=== PATIENT | male | born 1940 | race Caucasian/White ===

== ENCOUNTER 2016-12-10 06:36 | Inpatient (IN) | payer MEDICARE ==
--- NOTE | 2016-12-02 21:50 | HP ---
HISTORY AND PHYSICAL: DATE OF ADMISSION/SURGERY: 12/10/16 DATE OF OFFICE VISIT: 12/02/16 SURGEON: Stephy Lyon MD * (DICTATED BY JENNIFER ALVAREZ) PROCEDURE: Right total hip arthroplasty. CHIEF COMPLAINT: Right hip pain. HISTORY OF PRESENT ILLNESS: Mr. Bills is a 76-year-old gentleman with complaints of right hip pain secondary to advanced osteoarthritis. He has failed conservative management and has elected to proceed with a right total hip arthroplasty, which is scheduled for 12/10/16. PAST MEDICAL HISTORY: AFib, BPH, hypertension, hyperlipidemia, and kidney stones. PAST SURGICAL HISTORY: Left total knee arthroplasty, bilateral carpal tunnel release, right inguinal hernia repair, and placement of ureteral stents. CURRENT MEDICATIONS: 1. Metoprolol. 2. Xarelto. 3. Jublia. 4. Allopurinol. 5. Losartan. 6. Potassium. 7. Dutasteride. 8. Simvastatin. ALLERGIES: None. FAMILY HISTORY: COPD and leukemia. SOCIAL HISTORY: This is a 76-year-old gentleman. He lives alone. He occasionally smokes a cigar. He does not use drugs. He uses occasional alcohol. REVIEW OF SYSTEMS: A complete 14-point review of systems was reviewed with the patient, it was all negative or noncontributory. PHYSICAL EXAMINATION GENERAL: He is well developed, well nourished, in no acute distress. VITAL SIGNS: He stands 5 feet 7 inches tall, weighs 165 pounds. His blood pressure is 140/90, his heart rate is 64. HEENT: Normocephalic, atraumatic. NECK: Supple. No palpable lymph nodes. PULMONARY: The lungs are clear to auscultation bilaterally. CARDIO: Regular rate and rhythm. ABDOMEN: Soft, nontender, and nondistended. MUSCULOSKELETAL: Right lower extremity, the skin is intact. There are no open wounds or abrasions. He has decreased internal and external rotation of the right hip. He walks with an antalgic type gait favoring his right leg, 5/5 lower extremity strength. 2+ dorsalis pedis pulses and intact sensation. NEUROLOGICAL: Alert and oriented x3. Cranial nerves II through XII are intact. ASSESSMENT AND PLAN: Mr. Bills is a 76-year-old gentleman with complaints of right hip pain secondary to advanced osteoarthritis. He has failed conservative management and has elected to proceed with a right total hip arthroplasty, which is scheduled for 12/10/[address] Lyon discussed the risks and benefits of the surgery at today's visit and all of his questions were answered. He was instructed to stop his Xarelto 3 days prior to the surgery and will be restarted at the time of discharge from the hospital. He will follow up with Dr. Reddy 2 weeks after the surgery. JENNIFER ALVAREZ [id number]/[facility] #: [id number] LOGAN
[~2016-12-10 06:36] MED LIST: Buffered Lidocaine 0.9% SYRIN* 5 ML/SYR SYRINGE INTRADERM ONE; DiMENhydriNATE IV* 50 MG/ML VIAL IV PUSH PRN; Famotidine IV* 10 MG/ML 2 ML (20 mg) IV ONE; Morphine INJ* 2 MG/ML 1 ML CARPUJECT IV PRN; Ondansetron INJ* 2 MG/ML VIAL IV PRN; PROCHLORPERAZINE INJ 5 MG/ML 2 ML VIAL IV PRN; fentaNYL* 50 MCG/ML 2 ML VIAL (100 MCG VIAL) IV PRN
[2016-12-10] MEDS ORDERED: ceFAZolin 2 GM PREMIX (*) 2 GM/50 ML BAG IVPB ONE (06:47)
[2016-12-10] MEDS ORDERED: Buffered Lidocaine 0.9% SYRIN* 5 ML/SYR SYRINGE ONE (06:47)
[2016-12-10] MEDS ORDERED: Famotidine IV* 10 MG/ML 2 ML (20 mg) ONE (06:47)
[2016-12-10] MEDS ORDERED: fentaNYL* 50 MCG/ML 2 ML VIAL (100 MCG VIAL) ONE (07:37)
[2016-12-10] MEDS ORDERED: KETAMINE HCL* 50 MG/ML 10 ML VIAL ONE (07:37)
[2016-12-10] MEDS ORDERED: Morphine PF AMP (0.5MG/ML)* 5 MG/10 ML AMP ONE (07:37)
[2016-12-10] MEDS ORDERED: Midazolam* 1 MG/ML 5 ML VIAL (5 MG) ONE (07:37)
[2016-12-10] MEDS ORDERED: PROCHLORPERAZINE INJ 5 MG/ML 2 ML VIAL IV PRN (09:17)
[2016-12-10] MEDS ORDERED: Ondansetron INJ* 2 MG/ML VIAL IV PRN ×2 (09:17→10:03)
[2016-12-10] MEDS ORDERED: Naloxone* 0.4 MG/ML 1 ML VIAL IV PRN (09:17)
[2016-12-10] MEDS ORDERED: DiMENhydriNATE IV* 50 MG/ML VIAL IV PUSH PRN (09:17)
[2016-12-10] MEDS ORDERED: Nalbuphine* 20 MG/ML 1 ML VIAL IV PRN (09:17)
[2016-12-10] MEDS ORDERED: Morphine INJ* 2 MG/ML 1 ML SYRINGE (TWO MG - NEW SYRINGE VERSION) IV PRN (09:20)
[2016-12-10] MEDS ORDERED: Polyethylene Glycol 3350* 17 GM PACKET PO PRN (10:03)
[2016-12-10] MEDS ORDERED: diPHENhydraMINE IV* 50 MG/ML 1 ml VIAL (BENADRYL) IV PRN (10:03)
[2016-12-10] MEDS ORDERED: Bisacodyl SUPP* 10 MG SUPP PR PRN (10:03)
[2016-12-10] MEDS ORDERED: Morphine INJ* 2 MG/ML 1 ML CARPUJECT IV PRN (10:03)
[2016-12-10] MEDS ORDERED: Acetaminophen TAB* 325 MG PO PRN (10:03)
[2016-12-10] MEDS ORDERED: oxyCODONE TAB* 5 MG TAB PO PRN (10:03)
[2016-12-10] MEDS ORDERED: oxyCODONE/Acetamin 5/325 MG* TAB PO PRN (10:03)
[2016-12-10] MEDS ORDERED: Magnesium Hydroxide LIQ* 30 ML UDC PO PRN (10:03)
[2016-12-10] MEDS ORDERED: Phenylephrine INJ* 10 MG/ML 1 ML VIAL (10 MG) ONE (10:36)
[2016-12-10] MEDS ORDERED: Ondansetron INJ* 2 MG/ML VIAL ONE (10:36)
[2016-12-10] MEDS ORDERED: Bupivacaine 0.5% SDV PF* 30 ML VIAL ONE (10:36)
[2016-12-10] MEDS ORDERED: PROCHLORPERAZINE INJ 5 MG/ML 2 ML VIAL ONE (10:36)
[2016-12-10] MEDS ORDERED: Lidocaine 2% PF * 5 ML VIAL ONE (10:36)
[2016-12-10] MEDS ORDERED: Metoprolol Tartrate IV* 1 MG/ML 5 ML VIAL ONE (10:36)
[2016-12-10] MEDS ORDERED: Propofol* 500 MG/50 ML BTL ONE (10:36)
--- NOTE | 2016-12-10 11:13 | RAD ---
Indication: Right hip replacement. Single view of the right hip demonstrates right hip arthroplasty in satisfactory position. Right femoral reamer is in place. IMPRESSION: Right hip replacement in satisfactory position.
--- NOTE | 2016-12-10 11:26 | RAD ---
Indication: Right hip arthroplasty. 2 views of the right hip demonstrates femoral and acetabular component to be well seated. No loosening is noted. No evidence of periprosthetic fracture is noted. IMPRESSION: Right hip replacement in satisfactory position.
--- NOTE | 2016-12-10 11:26 | RAD ---
Indication: Right hip replacement. Single view of the right hip demonstrates bipolar right hip arthroplasty in satisfactory position. Pelvic ring is intact. IMPRESSION: Right hip replacement in satisfactory position.
[2016-12-10] MEDS: ceFAZolin 1 GM VIAL(*) 1 GM in NS 0.9% 50 ML* 50 ML IVPB SCH ×2 (16:11→23:52)
--- NOTE | 2016-12-10 17:36 | CONS ---
CC: Dr. Lyon; Dr. Rodriguez* CONSULTATION REPORT: DATE OF CONSULT: 12/10/16 ATTENDING PHYSICIAN WHILE IN THE HOSPITAL: Dr. Kaushik Bradshaw (report being dictated by Alan Rosenberg NP). REASON FOR MEDICAL CONSULT: Evaluation and medical management of comorbid medical conditions. HISTORY OF PRESENT ILLNESS: Mr. Bills is a 76-year-old male patient. He carries a history of AFib, BPH, hypertension, hyperlipidemia, nephrolithiasis, and he had syncope in the past related to orthostasis. He comes in to the orthopedic services today and I will refer you to Dr. Lyon's H and P for further details, but in the short Mr. Bills has been suffering from right hip pain for some time. He had been trying conservative management; however, this had failed and the patient elected to proceed with a right total hip arthroplasty, which he underwent today. He underwent cardiac risk stratification and he saw his primary for this. He had a normal stress test preoperatively, but because of his medical complexity, we are asked to help in medical management. The patient was evaluated in the PACU. He denies having any chest pain. He says he just feels tired. He denies having any shortness of breath. He says he cannot feel his lower extremities; he did undergo spinal anesthetic. He denies having any abdominal discomfort. He says he does not feel nauseated. He says his pain is well controlled. He just feels tired and he is offering really no complaints at this point. PAST MEDICAL HISTORY: Significant for: 1. Hypertension. 2. Hyperlipidemia. 3. BPH. 4. AFib. 5. Nephrolithiasis. 6. Syncope due to orthostasis in the past. PAST SURGICAL HISTORY: 1. The patient has had a left total knee arthroplasty, now he has had a right total hip arthroplasty. 2. Carpal tunnel repaired bilaterally. 3. Hernia repair. 4. He has had ureteral stent placements bilaterally in the past. MEDICATIONS: The home meds according to his list include: 1. Simvastatin 20 mg daily. 2. Xarelto 20 mg daily. 3. Toprol-XL 12.5 mg daily. 4. Lisinopril 10 mg daily. 5. Avodart 0.5 mg p.o. q.a.m. 6. Allopurinol 300 mg daily. 7. Tylenol Extra Strength 500 mg every 6 hours as needed. ALLERGIES TO MEDICATIONS: Include no known drug allergies. FAMILY HISTORY: His mother, he says, she at the age of 90 from old age. There were no reports of heart disease or diabetes per the patient in the patient's mother. Father of diabetes. SOCIAL HISTORY: He occasionally smokes cigars. He does drink a glass of wine at night, one glass of red wine. He is , with children. Surrogate decision maker is Stephania, his daughter. REVIEW OF SYSTEMS: There is no documented fever. He denied having any significant weight change. There has been no double vision, no ear discharge, no rhinorrhea. No sore throat. No thyroid enlargement. Denied having any chest pain. No orthopnea, no nocturnal dyspnea. There was no abdominal pain. No nausea, no vomiting. No dysuria, no frequency. There was no seizure, no loss of consciousness. No pruritus and no skin ulcerations. Review of 14 systems completed, all others negative. PHYSICAL EXAM: Reveals vital signs, blood pressure 123/79 with a pulse of 76, respirations 16, O2 sat 98%, temperature 97.3. General: At this time, Mr. Bills is a 76-year-old male patient. He is sitting in the PACU bed. He is awake, he is alert, he is well-nourished, well-developed. HEENT: Head atraumatic. Eyes: EOMs are intact. Sclerae anicteric, not pale. Throat: Oral mucosa appears to be moist. No oropharyngeal erythema. Neck: Supple. Heart: Sounds S1, S2. Irregularly irregular rate. No murmurs, rubs, or gallops. Lungs: Clear to auscultation. No wheezes, rales, or rhonchi. Abdomen: Soft, it was flat. Bowel sounds hypoactive. Extremities: He is not moving lower extremity at this point due to spinal anesthetic and he is in a hip adductor pillow, but he does have palpable pulses bilaterally. He has no peripheral edema. At this point, he is moving his upper extremities with 5/ 5 strength. Neurologically, he is awake, alert, and oriented x3. Speech is clear. His tongue is midline. [employer] were equal. He had no gross obvious focal deficits. His skin is intact with exception he has an incision in the right hip, which is covered with an ABD, it is clean, dry, and intact. DIAGNOSTIC STUDIES/LAB DATA: Preoperatively WBC is 7.9, RBC of 3.83, hemoglobin 12.7, hematocrit 38, platelet count 180. INR today 1.01. Sodium was 142, potassium 4.2, chloride 109, bicarb 28, BUN 17, creatinine 0.73, glucose 95. Urine preop was negative. He did have preop EKG, shows atrial fibrillation, rate of 71, no ST elevations or T- wave inversions. He had a preop stress test, again, which did show, impression: Normal cardiac exercise stress test. Old medical records reviewed. 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 Old medical records reviewed. ASSESSMENT AND PLAN: Mr. Bills is a 76-year-old male patient coming into the orthopedic services today for an elective right total knee arthroplasty. We are asked to evaluate in consult. My recommendations at this point are: 1. Status total right total hip arthroplasty. I will defer the management to Dr. Lyon and her team. 2. Atrial fibrillation. His rate is controlled. I will continue his Toprol. I will get him back on Xarelto as soon as possible once it is deemed appropriate by Dr. Lyon and her team. 3. Benign prostatic hyperplasia. I will continue his Avodart. 4. Hypertension. I am going to hold his lisinopril. We will continue his Toprol- XL and we will restart lisinopril when able. He did receive spinal anesthetic. 5. Hyperlipidemia. Continue his current medical regimen. He is on simvastatin. 6. Nephrolithiasis. Not an active issue. 7. History of syncope. Again, in the setting of him recently having an spinal anesthetic when we do go to stand him for PT, we will need to take note of this as he could become orthostatic and syncopize fairly easily. I am going to make sure he is well hydrated and in addition to this, slow with position changes. 8. DVT prophylaxis. Defer to the primary team, but again I will get him back on the Xarelto and that could be used for DVT prophylaxis. 9. Code status. He is a full code. 10. Fluids, electrolytes, nutrition. I would recommend a heart-healthy diet. TIME SPENT: On consult was 60 minutes, greater than half the time spent face-to - face with the patient obtaining my history and physical, the other half of the time spent going over the plan of care with the patient and implementing the plan of care. I did discuss the plan of care with my attending, Dr. Bradshaw; he is in agreement. ALAN ROSENBERG, BRITTANY [id number]/[facility] #: [id number] LOGAN
[2016-12-10] MEDS: Ketorolac INJ* 15 MG/ML 1 ML VIAL IV PUSH PRN (19:45)
[2016-12-10] MEDS: Docusate CAP* 100 MG PO SCH (19:46)
[2016-12-10] MEDS: oxyCODONE/Acetamin 5/325 MG* TAB PO PRN (22:57)
[2016-12-11 05:34] LABS: Hematocrit 31 % (42-52); Hemoglobin 10.5 g/dl (14.0-18.0)
[2016-12-11] MEDS: oxyCODONE/Acetamin 5/325 MG* TAB PO PRN ×2 (05:48→19:29)
[2016-12-11 05:49] LABS: BUN/Creatinine Ratio 21.1 (8-20); Calcium 8.3 mg/dL (8.6-10.3); EGFR Non-African American 107.3 (>60)
[2016-12-11] MEDS: Finasteride TAB* 5 MG PO SCH ×3 (08:50→11:11)
[2016-12-11] MEDS: ceFAZolin 1 GM VIAL(*) 1 GM in NS 0.9% 50 ML* 50 ML IVPB SCH (08:50)
[2016-12-11] MEDS: Docusate CAP* 100 MG PO SCH ×2 (08:50→19:30)
[2016-12-11] MEDS: Metoprolol Succinate XL TAB* 25 MG PO SCH (08:50)
[2016-12-11] MEDS: Enoxaparin(*) 40 MG/0.4 ML SYR SUBCUT SCH (08:50)
[2016-12-11] MEDS: Atorvastatin* 10 MG TAB PO SCH ×3 (08:50→11:11)
[2016-12-11] MEDS: Allopurinol TAB* 300 MG PO SCH (08:51)
[2016-12-11] MEDS ORDERED: Lisinopril TAB* 10 MG PO SCH (09:00)
--- NOTE | 2016-12-11 11:19 | PN ---
Progress Note - Progress Note Date of Service: 12/11/16 SOAP: Subjective: 76 y/o male s/p right total hip arthroplasty on 12/10/2016. The patient reports feeling very well, eager for D/C tomorrow. Hip precautions reviewed with patient, voices understanding. VSS afebrile overnight Objective: General- Well appearing, NAD AO MSK- Surgical dressing intact, no drainage noted, minimal swelling, non tender. + DF/PF, NVI, sensation intact to light touch b/l, PT 2+ b/l. Vital Signs Temp 98.4 F 12/11/16 07:45 Pulse 83 12/11/16 07:45 Resp 16 12/11/16 11:01 BP 118/74 12/11/16 07:45 Pulse Ox 95 12/11/16 07:45 Intake & Output 12/10/16 12/11/16 12/11/16 18:59 06:59 18:59 Intake Total 2500 1643 1323 Output Total 730 1500 Balance 7199 298 5712 Weight 148 lb 9.6 oz Intake: IV Fluids 1900 1013 1098 ABX - CEFAZOLIN 55 103 LR 1900 958 995 Oral 600 630 225 Output: Mathews 450 1500 Residual 30 Mathews 16 Fr 30 Estimated Blood Loss 250 Other: # Bowel Movements 0 Assessment: Stable 76 y/o male s/p right total hip arthroplasty on 12/10/2016. Plan: - anticoag- Patient will be D/Cd on Xarelto to start at D/C. Continue lovenox. - Continue PT - Possible D/C tomorrow to home Active Medications Generic Name Dose Route Start Last Admin Trade Name Freq PRN Reason Stop Dose Admin Acetaminophen 650 mg 12/10/16 10:03 Tylenol Tab* PO Q4H PRN PAIN OR TEMPERATURE Allopurinol 300 mg 12/11/16 09:00 12/11/16 08:51 Zyloprim Tab* PO 300 mg QAM DASH Administration Atorvastatin Calcium 10 mg 12/11/16 09:00 12/11/16 11:11 Lipitor* PO 10 mg QAM DASH Administration Bisacodyl 10 mg 12/10/16 10:03 Dulcolax Supp* [place] DAILY PRN constipation Diphenhydramine HCl 12.5 mg 12/10/16 10:03 Benadryl Iv* IV Q6H PRN PRURITIS Docusate Sodium 100 mg 12/10/16 21:00 12/11/16 08:50 Colace Cap* PO 100 mg BID DASH Administration Enoxaparin Sodium 40 mg 12/11/16 09:00 12/11/16 08:50 Lovenox(*) SUBCUT 40 mg Q24H DASH Administration Finasteride 5 mg 12/11/16 09:00 12/11/16 11:11 Proscar Tab* PO 5 mg QAM DASH Administration Protocol Lactated Ringer's 1,000 mls @ 100 mls/hr 12/10/16 11:00 12/10/16 23:48 Lactated Ringers 1000 Ml Bag* IV 100 mls/hr PER RATE DASH Administration Ketorolac Tromethamine 15 mg 12/10/16 09:17 12/10/16 19:45 Toradol Inj* IV PUSH 12/12/16 15:18 15 mg Q6H PRN Administration PAIN Lactulose 30 ml 12/10/16 10:03 Lactulose* PO Q6H PRN constipation Magnesium Hydroxide 30 ml 12/10/16 10:03 Milk Of Magnesia Liq* PO Q6H PRN constipation Metoprolol Succinate 12.5 mg 12/11/16 09:00 12/11/16 08:50 Toprol Xl Tab* PO 12.5 mg QAM DASH Administration Morphine Sulfate 2 mg 12/10/16 09:20 Morphine Inj (Syringe)* IV 12/14/16 12:00 Q1H PRN PAIN Morphine Sulfate 2 mg 12/10/16 10:03 Morphine Inj (Syringe)* IV Q2H PRN PAIN Ondansetron HCl 4 mg 12/10/16 10:03 Zofran Inj* IV Q6H PRN nausea Oxycodone HCl 10 mg 12/10/16 10:03 12/11/16 11:01 Roxycodone Tab* PO 5 mg Q4H PRN Administration SEVERE PAIN Oxycodone/Acetaminophen 2 tab 12/10/16 09:17 12/11/16 05:48 Percocet 5/325 Tab* PO 2 tab Q4H PRN Administration Moderate Pain Oxycodone/Acetaminophen 1 tab 12/10/16 10:03 Percocet 5/325 Tab* PO Q3H PRN PAIN - MODERATE Oxycodone/Acetaminophen 2 tab 12/10/16 10:03 Percocet 5/325 Tab* PO Q3H PRN PAIN - MODERATE Polyethylene Glycol/Electrolytes 17 gm 12/10/16 10:03 Miralax* PO DAILY PRN Constipation
--- NOTE | 2016-12-11 14:37 | PN ---
Subjective Date of Service: 12/11/16 Interval History: Patient has no acute complaints. No pain in hip at rest, increased with movement but not intolerable. No CP, SOB, N/V, Abdominal pain, Dysuria, retention, dizziness, or other pain. Patient denies issues with orthostasis and has been drinking lots of water. Family History: Unchanged from Admission Social History: Unchanged from Admission Past Medical History: Unchanged from Admission Objective Active Medications: Acetaminophen (Tylenol Tab*) 650 mg PO Q4H PRN PRN Reason: PAIN OR TEMPERATURE Last Admin: 12/11/16 13:41 Dose: 650 mg Allopurinol (Zyloprim Tab*) 300 mg PO [facility] Last Admin: 12/11/16 08:51 Dose: 300 mg Atorvastatin Calcium (Lipitor*) 10 mg PO [facility] Last Admin: 12/11/16 11:11 Dose: 10 mg Bisacodyl (Dulcolax Supp*) 10 mg [place] DAILY PRN PRN Reason: constipation Diphenhydramine HCl (Benadryl Iv*) 12.5 mg IV Q6H PRN PRN Reason: PRURITIS Docusate Sodium (Colace Cap*) 100 mg PO BID [facility] Last Admin: 12/11/16 08:50 Dose: 100 mg Enoxaparin Sodium (Lovenox(*)) 40 mg SUBCUT Q24H [facility] Last Admin: 12/11/16 08:50 Dose: 40 mg Finasteride (Proscar Tab*) 5 mg PO [facility] PRN Reason: Protocol Last Admin: 12/11/16 11:11 Dose: 5 mg Lactated Ringer's (Lactated Ringers 1000 Ml Bag*) 1,000 mls @ 100 mls/hr IV PER RATE [facility] Last Admin: 12/10/16 23:48 Dose: 100 mls/hr Ketorolac Tromethamine (Toradol Inj*) 15 mg IV PUSH Q6H PRN PRN Reason: PAIN Stop: 12/12/16 15:18 Last Admin: 12/10/16 19:45 Dose: 15 mg Lactulose (Lactulose*) 30 ml PO Q6H PRN PRN Reason: constipation Magnesium Hydroxide (Milk Of Magnesia Liq*) 30 ml PO Q6H PRN PRN Reason: constipation Metoprolol Succinate (Toprol Xl Tab*) 12.5 mg PO [facility] Last Admin: 12/11/16 08:50 Dose: 12.5 mg Morphine Sulfate (Morphine Inj (Syringe)*) 2 mg IV Q1H PRN PRN Reason: PAIN Stop: 12/14/16 12:00 Morphine Sulfate (Morphine Inj (Syringe)*) 2 mg IV Q2H PRN PRN Reason: PAIN Ondansetron HCl (Zofran Inj*) 4 mg IV Q6H PRN PRN Reason: nausea Oxycodone HCl (Roxycodone Tab*) 10 mg PO Q4H PRN PRN Reason: SEVERE PAIN Last Admin: 12/11/16 11:01 Dose: 5 mg Oxycodone/Acetaminophen (Percocet 5/325 Tab*) 2 tab PO Q4H PRN PRN Reason: Moderate Pain Last Admin: 12/11/16 05:48 Dose: 2 tab Oxycodone/Acetaminophen (Percocet 5/325 Tab*) 1 tab PO Q3H PRN PRN Reason: PAIN - MODERATE Oxycodone/Acetaminophen (Percocet 5/325 Tab*) 2 tab PO Q3H PRN PRN Reason: PAIN - MODERATE Polyethylene Glycol/Electrolytes (Miralax*) 17 gm PO DAILY PRN PRN Reason: Constipation Vital Signs 12/10/16 12/10/16 12/10/16 14:36 15:35 16:00 Temperature 97.7 F 97.7 F Pulse Rate 75 37 Respiratory 18 18 Rate Blood Pressure 119/83 131/82 (mmHg) O2 Sat by Pulse 98 95 98 Oximetry 12/10/16 12/10/16 12/10/16 17:07 17:31 18:17 Temperature 98.0 F Pulse Rate 74 89 Respiratory 18 18 Rate Blood Pressure 125/83 (mmHg) O2 Sat by Pulse 98 Oximetry 12/10/16 12/10/16 12/10/16 19:29 19:50 21:17 Temperature 99.3 F Pulse Rate 73 Respiratory 18 18 18 Rate Blood Pressure 127/73 (mmHg) O2 Sat by Pulse 97 Oximetry 12/10/16 12/10/16 12/11/16 22:57 23:33 00:57 Temperature 98.9 F Pulse Rate 71 Respiratory 16 14 14 Rate Blood Pressure 105/61 (mmHg) O2 Sat by Pulse 95 Oximetry 12/11/16 12/11/16 12/11/16 03:35 04:10 05:48 Temperature 98.7 F Pulse Rate 97 Respiratory 16 14 Rate Blood Pressure 116/73 (mmHg) O2 Sat by Pulse 94 94 Oximetry 12/11/16 12/11/16 12/11/16 07:30 07:45 07:48 Temperature 98.4 F Pulse Rate 83 Respiratory 16 16 16 Rate Blood Pressure 118/74 (mmHg) O2 Sat by Pulse 95 Oximetry 12/11/16 12/11/16 12/11/16 11:01 12:00 13:01 Temperature 97.6 F Pulse Rate 60 Respiratory 16 18 16 Rate Blood Pressure 141/76 (mmHg) O2 Sat by Pulse Oximetry Oxygen Devices in Use Now: None Appearance: Patient is a 76yo male who appears stated age and is sitting in the chair in NAD. Eyes: No Scleral Icterus, PERRLA Ears/Nose/Mouth/Throat: NL Teeth, Lips, Gums, Clear Oropharnyx, Mucous Membranes Moist Neck: NL Appearance and Movements; NL JVP, Trachea Midline Respiratory: Symmetrical Chest Expansion and Respiratory Effort, Clear to Auscultation Cardiovascular: NL Sounds; No Murmurs; No JVD, RRR, No Edema Abdominal: NL Sounds; No Tenderness; No Distention, No Hepatosplenomegaly Lymphatic: No Cervical Adenopathy Extremities: No Edema Skin: No Rash or Ulcers, No Nodules or Sclerosis Neurological: Alert and Oriented x 3, NL Sensation, NL Muscle Strength and Tone Result Diagrams: 12/11/16 05:25 12/11/16 05:25 Assess/Plan/Problems-Billing Assessment: Patient is a 76yo male with a PMH significant for Afib, BPH, Syncope from orthostasis, HTN, HLD who is POD#1 from a BETTIE and has no acute complaints. - Patient Problems (1) Post-operative state Current Visit: Yes Status: Acute Code(s): Z98.890 - OTHER SPECIFIED POSTPROCEDURAL STATES SNOMED Code(s): 74940866 Comment: No complaints, Pain controlled, neurovascularly intact distal to surgery. Passing gas without BM, Urinating large amounts. Working with PT for post operative state. Management per primary team. (2) BPH (benign prostatic hyperplasia) Current Visit: Yes Status: Acute Code(s): N40.0 - BENIGN PROSTATIC HYPERPLASIA WITHOUT LOWER URINRY TRACT SYMP SNOMED Code(s): 912855270 Comment: Mathews removed, no signs of retention. (3) HLD (hyperlipidemia) Current Visit: Yes Status: Acute Code(s): E78.5 - HYPERLIPIDEMIA, UNSPECIFIED SNOMED Code(s): 11334302 Comment: Continue atorvastatin. (4) Atrial fibrillation Current Visit: No Status: Acute Code(s): I48.91 - UNSPECIFIED ATRIAL FIBRILLATION SNOMED Code(s): 31744724 Comment: Rate well controlled on metoprolol. Regular rhythm on exam. Anticoaglation with Lovenox then Xarelto. (5) HTN (hypertension) Current Visit: No Status: Acute Code(s): I10 - ESSENTIAL (PRIMARY) HYPERTENSION SNOMED Code(s): 66312835 Comment: High normal blood pressure on metoprolol. Restart Lisinopril on 12/12. (6) Syncope Current Visit: No Status: Acute Code(s): R55 - SYNCOPE AND COLLAPSE SNOMED Code(s): 861058284 Comment: No signs of orthostasis. No dizziness on standing. Continue to keep well hydrated. (7) Full code status Current Visit: Yes Status: Acute Code(s): Z78.9 - OTHER SPECIFIED HEALTH STATUS SNOMED Code(s): 245503119 (8) DVT prophylaxis Current Visit: Yes Status: Acute Code(s): ZRT5755 - SNOMED Code(s): 715984355 Comment: Lovenox then Xarelto. Status and Disposition: Disposition per primary team. Will sign off, thank you for this consult.
[2016-12-11] MEDS: Ketorolac INJ* 15 MG/ML 1 ML VIAL IV PUSH PRN (17:13)
--- NOTE | 2016-12-11 21:31 | OP ---
DATE OF OPERATION: 12/10/16 - ROOM #346 DATE OF : 36 SURGEON: Stephy Lyon MD PAPERHANGER ASSISTANT: JENNIFER Ureña. Ms. Dela Cruz did help throughout the procedure with preparation of the leg, wound retraction, manipulation of the hip , and wound closure. ANESTHESIOLOGIST: Dr. Gonzalez. ANESTHESIA: Spinal. PRE-OP DIAGNOSIS: Severe end-stage degenerative osteoarthritis of the right hip. POST-OP DIAGNOSIS: Severe end-stage degenerative osteoarthritis of the right hip. OPERATIVE PROCEDURE: Right total hip arthroplasty. ESTIMATED BLOOD LOSS: 300 cc. SPECIMEN: Femoral head and acetabular reamings sent to Pathology. COMPLICATIONS: None. HARDWARE: This is [place] uncemented total hip hardware. For the cup, Tritanium 58F cluster hole shell with a single 20-mm and a single 25-mm cancellous bone screw. For the liner, a Trident X3 0 degree polyethylene insert 40F. For the stem, an Accolade TMZF size 3 with a 127-degree neck. For the head, an LFIT anatomic V40 femoral head, 40+ 0. BRIEF HISTORY/INDICATION: Mr. Bills is a 76-year-old gentleman with years of increasingly severe right hip pain. He elected to undergo right total hip arthroplasty due to continued pain and decreased quality of life. He failed conservative treatment with the anti-inflammatories, pain medications, physical therapy and ambulatory assistive devices. Informed consent was obtained from the patient. He understood the risks of the surgery included, but were not limited to bleeding, infection, damage to nearby structures, continued pain, need for further surgery, intraoperative fracture, nerve palsy, hardware failure , loosening, dislocation, leg length discrepancy, stroke, heart attack, blood clot and . He wished to proceed. INTRAOPERATIVE FINDINGS: Intraoperatively, the patient was noted to have severe end-stage arthritis with complete loss of cartilage in the acetabulum and femoral head. DESCRIPTION OF PROCEDURE: Mr. Bills was identified in the preanesthesia unit. His right lower extremity was marked as the correct operative side. Informed consent was signed and placed in the chart. The patient was taken to the operating room and placed under spinal anesthesia. Mathews catheter was placed. He was placed in the left lateral decubitus position on the peg board. All bony prominences were well padded. The right lower extremity was prepped and draped in the usual sterile fashion. Preop time-out was made to correctly identify the patient's side and site. A 12 cm posterior hip incision was made with a 10 blade and carried down to the fascial layer. Lateral fascial layer was incised in line with the skin incision. Charnley retractor was placed. The piriformis and conjoint tendons were elevated of the posterolateral femur using electrocautery and tagged with # 5 Ethibonds. Electrocautery was then used to make a standard posterolateral capsular flap and this was also tagged with #5 Ethibonds. The hip was carefully dislocated. Lesser troch to center of the femoral head measured 55 mm. Oscillating saw was used to make the appropriate femoral neck cut. Femoral head was sent to Pathology. The femur was carefully retracted anteriorly. After appropriate placement of the retractor, the acetabulum was well visualized. A long-handled knife was used to sharply remove any remaining labrum from around the acetabular rim. The acetabulum was sequentially reamed up to a size 57. 57 reamer showed good subchondral bone with a bleeding bed. 57 trial had good fit as well as excellent anteversion and abduction angle. Final implant chosen was a Tritanium cluster hole shell 58F. This was impacted into the acetabulum without difficulty. There was excellent stability as well as appropriate anteversion and abduction angle. Two screws were placed in the superoposterior quadrant for extra stability. These were length 20 and 25 mm. The insert chosen was a trident X3 0-degree polyethylene insert 40F. This was impacted into the acetabulum without difficulty. The stability of the insert was checked and rechecked and noted to be stable. Next, attention was turned to preparation of the proximal femur. Box cut osteotome and canal finder were used to enter the proximal femur. Proximal femur was sequentially broached up to a size 3. Size 3 broach had good stability and anteversion. A 127 neck trial with a 40+ 0 head trial were placed. The lesser troch to the center of the femoral head measured 57 mm. The hip was reduced and taken through a range of motion. The hip was stable in all positions. There was appropriate soft tissue tension and leg length. The hip was carefully dislocated. Final implant chosen was an Accolade TMZF size 3 with a 127-degree neck. This was carefully impacted into the femoral canal without difficulty. A 40+ 0 LFIT anatomic V40 femoral head was chosen. This was impacted onto the femoral neck. Lesser troch to the center of the femoral head measured 57 mm. The hip was reduced and taken through a range of motion. The hip was stable in all positions. The hip was copiously irrigated with sterile saline. The previously tagged capsule and tendons were reapproximated to the posterolateral femur using trochanteric drill holes. The lateral fascial layer was closed using interrupted #1 Vicryls. The rest of the incision was closed in a layered fashion using 0 and 2-0 Vicryl. The skin was closed using running 3-0 Monocryl and Dermabond. Sterile Adaptic, 4x4's and paper tape were used to cover the incision. The patient's anesthesia was reversed without difficulty. He was taken to the PACU in stable condition. Intended weightbearing will be weightbearing as tolerated. Intended DVT prophylaxis will be Coumadin with a Lovenox bridge. [id number]/[facility] #: [id number] LOGAN
[2016-12-12 05:08] LABS: Hematocrit 29 % (42-52); Hemoglobin 9.7 g/dl (14.0-18.0)
[2016-12-12 08:22] VITALS: BP 145/77
--- NOTE | 2016-12-12 08:35 | PN ---
Progress Note - Progress Note Date of Service: 12/12/16 SOAP: Subjective: POD #2 Right BETTIE, doing very well. Having some discomfort from no BM yet. Denies CP/SOB, calf pain, f/c Objective: Vital Signs: Temp Pulse Resp BP Pulse Ox 98.6 F 129 20 145/77 100 12/12/16 07:59 12/12/16 07:59 12/12/16 07:59 12/12/16 07:59 12/12/16 07:59 Gen: A&Ox3, NAD at rest Right Hip: Incision C/D/I, mild ecchymosis, thigh soft and non-tender. +f/e at knee, ankle and MTPs, N/V intact Labs: Laboratory Results - last 24 hr 12/12/16 12/12/16 04:44 04:44 Hgb 9.7 L Hct 29 L INR (Anticoag Therapy) 1.29 H Assessment: POD#2 Right BETTIE Plan: New dressing applied today Pt to be d/c'd home. Will resume Xarelto for DVT ppx F/u with Dr. Lyon 10-14 days post op
[2016-12-12] MEDS: Enoxaparin(*) 40 MG/0.4 ML SYR SUBCUT SCH (08:43)
[2016-12-12] MEDS: Docusate CAP* 100 MG PO SCH (08:43)
[2016-12-12] MEDS: oxyCODONE/Acetamin 5/325 MG* TAB PO PRN (08:43)
[2016-12-12] MEDS: Atorvastatin* 10 MG TAB PO SCH (08:49)
[2016-12-12] MEDS: Finasteride TAB* 5 MG PO SCH (08:49)
[2016-12-12] MEDS: Allopurinol TAB* 300 MG PO SCH (08:49)
[2016-12-12] MEDS: Metoprolol Succinate XL TAB* 25 MG PO SCH (08:49)
[2016-12-12] MEDS ORDERED: Lisinopril TAB* 10 MG PO SCH (09:00)
== END 2016-12-12 10:15 | disposition home health service (06) | DRG 470 ==
LOC: AA 06:36 → SSU 13:33
PROVIDERS: ADMIT Orthopaedic Surgery Adult Reconstructive Orthopaedic Surgery; ATTEND Orthopaedic Surgery Adult Reconstructive Orthopaedic Surgery
PROC: 0SR902A Replacement of Right Hip Joint with Metal on Polyethylene Synthetic Substitute, Uncemented, Open Approach (ICD-10-PCS; principal; 2016-12-10 08:00)
DX: M16.11 Unilateral primary osteoarthritis, right hip (principal); I48.91 Unspecified atrial fibrillation; N40.0 Benign prostatic hyperplasia without lower urinary tract symptoms; I10 Essential (primary) hypertension; E78.5 Hyperlipidemia, unspecified; Z96.652 Presence of left artificial knee joint; Z96.0 Presence of urogenital implants; Z82.5 Family history of asthma and other chronic lower respiratory diseases; Z87.442 Personal history of urinary calculi; Z80.6 Family history of leukemia; Z72.89 Other problems related to lifestyle; Z72.0 Tobacco use; Z83.3 Family history of diabetes mellitus
CPT/HCPCS: 36415; 72170; 80048; 85014; 85018; 85610; A9270-GY; C1713; C1776; J0690; J0780; J1650; J1885; J2250; J2405; J2704; J3010

== ENCOUNTER 2017-04-10 17:45 | Emergency (ER) | payer MEDICARE ==
--- OUTSIDE RECORDS SUMMARY | 2017-04-10 18:52 | XMS REPORT ---
:1940 External Reference #:[id number] Author Organization [employer] Address [address] [place] [address] Phone [phone] Care Team Providers Name Role Phone Kj Rodriguez M.D. Primary Care Physician Unavailable Payers Type Date Identification Numbers Payment Provider Subscriber Commercial Policy Number: [id number] BS [employer] Margot [employer] Group Number: [id number] [address] [id number] PayID: [id number] [place] [address] Problems Date Description Provider Status Onset: Psoriasis Active Onset: Essential hypertension Active Onset: Hypercholesterolemia Active Onset: Large prostate Active Onset: Kidney stone Active Note: (Hx of) Onset: Chronic back pain Active Onset: Atrial fibrillation Active Onset: 02/24/2017 Central retinal vein occlusion with Omer Hussein M.D. Active macular edema Onset: 02/24/2017 Nuclear senile cataract Omer Hussein M.D. Active Family History Date Family Member(s) Problem(s) Comments Father Diabetes Mother No Current Problems Social History Type Date Description Comments Marital Status Legal Status: Work Status Retired ETOH Use Consumes 1-2 glasses of wine per day Smoking Patient is a current smoker, smokes (cigar occassionally) some days Recreational Drug Use Denies Drug Use Daily Caffeine Consumes on average 2 cups of regular coffee per day Allergies, Adverse Reactions, Alerts Date Description Reaction Status Severity Comments 02/20/2017 NKDA active Medications Medication Date Status Form Strength Qnty SIG Indications Ordering Provider Malachi Tears Active Solution 0.2-0.2-1% 1 drop Omer Dang both Jovita, eyes as M.D. needed Losartan Active Tablets 100mg Basco, Potassium 000 Sophia T M.D. Metoprolol Active Tablets ER 25mg Cardina, Succinate ER 000 24HR Ramon M.D. Allopurinol Active Tablets 300mg Vorha, 000 Alberto M.D. Dutasteride Active Capsules 0.5mg Vorha, 000 Alberto M.D. Simvastatin Active Tablets 20mg Darlow, 000 Kj A M.D. Xarelto Active Tablets 20mg Cardina, 000 Ramon M.D. Oxycodone-Acet Active Tablets 5-325mg Cisco, aminophen 000 Carmelita RPA-C Tamsulosin HCL Active Capsules 0.4mg Vorha, 000 Alberto M.D. Aleve Active Tablets 220mg as Unknown 000 needed Results Description No Information Procedures Date CPT Code Description Status 02/24/2017 18601 Scanning Computerized Opthalmic Diagnostic Posterior Completed Seg Retina 02/24/2017 45740 New Patient Comprehensive Exam Completed 11/03/2012 27875 Contact Lens For Treatment Of Ocular Surface Disease Completed 11/03/2012 98964 New Patient Intermediate Exam Completed Encounters Type Date Location Provider CPT E/M Dx Office Visit 03/04/2017 Clinton Nicholson MD, [place], [address] H34.8120 10:45a pc Adam H25.13 Office Visit 11/10/2012 10:00a Clinton Nicholson MD, Wolfgang Aguirre M.D. 09344 918.1 pc 365.04 Office Visit 11/07/2012 9:00a Clinton Nicholson MD, Wolfgang Aguirre M.D. 81568 918.1 pc Plan of Care 03/30/2017 - Danielle Lewis O.D.H34.8120 Central retinal vein occlusion, left eye, with macular edemaComments:Smoking can increase the risk of developing or worsening any eye related disease, as well as affect your overall health. If you are a smoker, we strongly recommend that you quit.If you are not a smoker, we strongly recommend that you do not start. You have swelling in the retina from the broken blood vessels in your eye, and we recommend treatment with injections in that eye to help decrease the swelling.Follow up:next available avastin with Dr. Hussein
--- OUTSIDE RECORDS SUMMARY | 2017-04-10 18:53 | XMS REPORT ---
:1940 External Reference #:[id number] Author Organization [employer] Address [address] [address] Phone [phone] Care Team Providers Name Role Phone Kj Rodriguez MD Primary Care Physician Unavailable Payers Type Date Identification Payment Subscriber Numbers Provider Health Maintenance Effective: Policy Number: Medicare Blue Francis E Organization ([employer]) 02/16/2012 [id number] [facility] Group Number: [id number] [address] PayID: [id number] [place] [address] Health Maintenance Expires: Policy Number: Medicare Blue Francis E Organization ([facility]) 02/15/2012 [id number] [facility] PayID: [id number] [address] [address] [place] [address] Problems Date Description Provider Status Onset: 07/29/2016 Localized, primary osteoarthritis Stephy Lyon M.D. Active Onset: 07/29/2016 Localized, primary osteoarthritis of the Stephy Lyon M.D. Active pelvic region and thigh Onset: 03/01/2017 Prosthetic arthroplasty of the hip Stephy Lyon M.D. Active Family History Date Family Member(s) Problem(s) Comments General Rheumatoid Arthritis General Hypertension General Cancer Father Diabetes Type II Social History Type Date Description Comments Lives With Alone Occupation Retired ETOH Use Currently consumes alcohol 14/WEEK Smoking Patient has never smoked Recreational Drug Use Denies Drug Use Daily Caffeine Consumes on average 2 cups or 1/2 caffeinated of regular coffee per day Exercise Type/Frequency Exercises regularly General Hx Text Do you follow a special diet? No Do you have problems with snoring, day time fatigue? No snoring. Yes day time fatigue. Allergies, Adverse Reactions, Alerts Date Description Reaction Status Severity Comments 01/30/2013 NKDA active Medications Medication Date Status Form Strength Qnty SIG Indications Ordering Provider Diclofenac 03/25/ Active Tablets DR 75mg 60tabs take 1 tab Stephy Sodium 2016 by mouth Camron, twice a day M.D. with food as needed Simvastatin / Active 20mg 1 tablet Unknown 0000 daily Dutasteride / Active Capsules 0.5mg 1 by mouth Unknown 0000 every day Losartan / Active Tablets 100mg 1 by mouth Unknown Potassium 0000 every day Allopurinol / Active Tablets 300mg 1 by mouth Unknown 0000 every day Glucosamine / Active Capsules 1500Com 1 by mouth Unknown Chondroitin 0000 every day (not taking) Xarelto / Active Tablets 20mg 1 by mouth Unknown 0000 every day Metoprolol / Active Tablets ER 25mg 1/2 tablet Unknown Succinate ER 0000 24HR by mouth every day Colace / Active Unknown 0000 Aleve / Active Unknown 0000 Percocet 12/12/ Hx Tablets 5-325mg 60tabs take 1-2 Stephy 2017 - tabs by Camron, 02/28/ mouth q4-6 M.D. 2018 hours as needed pain Jublia 03/19/ Hx Solution 10% 12ml apply to Tana 2017 - affected Acosta, 02/28/ nails once M.D. 2018 daily according to package instructons as needed Vicodin 07/08/ Hx Tablets 5-500mg 45tabs 1-2 by mouth Kole 2010 - bid as Real, 03/12/ needed for M.D. 2016 pain Lisinopril 00/ Hx Unknown 0000 - 2016 Aleve / Hx 220mg as needed Unknown 0000 - 2016 Lisinopril / Hx Tablets 10mg 1 by mouth Unknown 0000 - every day 09/15/ (not taking) 2016 Tylenol / Hx Unknown 0000 - 2017 Medications Administered in Office Medication Date Status Form Strength Qnty SIG Indications Ordering Provider Technetium TC Administered Injection DO Brit NguyenofosminQUINN Per Unit Dose Up To 40 Millicuries Depomedrol Administered Injection Stephy 40MG 017 Adam Lyon Depomedrol Administered Injection Tana 80MG 013 Adam Acosta Synvisc Or Administered Injection Kole Synvisc-One 011 Real, Injection 1 MG M.D. Synvisc Or Administered Injection Kole Synvisc-One 011 Real, Injection 1 MG M.D. Synvisc Or Administered Injection Kole Synvisc-One 011 Real, Injection 1 MG M.D. Vital Signs Date Vital Result Comment 03/29/2017 Height 68 inches 5'8" Weight 162.00 lb BP Systolic 118 mmHg BP Diastolic 84 mmHg Body Temperature 98.5 F BMI (Body Mass Index) 24.6 kg/m2 03/01/2017 Height 68 inches 5'8" Weight 162.00 lb Heart Rate 60 /min BP Systolic 136 mmHg BP Diastolic 78 mmHg BMI (Body Mass Index) 24.6 kg/m2 01/18/2017 Height 68 inches 5'8" Weight 161.00 lb Heart Rate 68 /min BP Systolic 130 mmHg BP Diastolic 84 mmHg Body Temperature 97.6 F BMI (Body Mass Index) 24.5 kg/m2 12/21/2016 Height 68 inches 5'8" Weight 162.00 lb Heart Rate 98 /min BP Systolic 128 mmHg BP Diastolic 75 mmHg Body Temperature 97.1 F Pain Level 4 BMI (Body Mass Index) 24.6 kg/m2 12/02/2016 Height 67.75 inches 5'7.75" Weight 164.00 lb Heart Rate 64 /min BP Systolic 140 mmHg BP Diastolic 90 mmHg Respiratory Rate 16 /min Body Temperature 97.9 F Pain Level 0 BMI (Body Mass Index) 25.1 kg/m2 10/13/2016 Height 67.75 inches 5'7.75" Weight 165.00 lb no shoes Heart Rate 76 /min irreg BP Systolic 128 mmHg Rue reg cuff BP Diastolic 66 mmHg Rue reg cuff BP Systolic Sitting 124 mmHg Lue reg cuff BP Diastolic Sitting 68 mmHg Lue reg cuff BP Systolic Standing 116 mmHg Lue reg cuff BP Diastolic Standing 64 mmHg Lue reg cuff Respiratory Rate 16 /min BMI (Body Mass Index) 25.3 kg/m2 Ejection Fraction 45-50% 06/23/2016-echo 07/29/2016 Height 67.75 inches 5'7.75" Weight 160.00 lb Heart Rate 78 /min BP Systolic 127 mmHg BP Diastolic 69 mmHg Body Temperature 97.2 F BMI (Body Mass Index) 24.5 kg/m2 03/18/2016 Height 57.75 inches 4'9.75" Weight 167.00 lb Heart Rate 80 /min BP Systolic 130 mmHg BP Diastolic 78 mmHg Pain Level 2 BMI (Body Mass Index) 35.2 kg/m2 03/13/2016 Height 57.75 inches 4'9.75" Weight 167.00 lb Heart Rate 66 /min BP Systolic 157 mmHg BP Diastolic 90 mmHg BMI (Body Mass Index) 35.2 kg/m2 05/01/2010 Height 69 inches 5'9" Weight 170.00 lb Heart Rate 74 /min BP Systolic Sitting 155 mmHg BP Diastolic Sitting 93 mmHg BMI (Body Mass Index) 25.1 kg/m2 Results Test Date Test Result H/L Range Note CBC No Diff 12/02/2016 White Blood Count 7.9 10^3/uL 3.5-10.8 1 Red Blood Count 3.83 10^6/uL Low 4.0-5.4 1 Hemoglobin 12.7 g/dL Low 14.0-18.0 1 Hematocrit 38 % Low 42-52 1 Mean Corpuscular Volume 100 fL High 80-94 1 Mean Corpuscular Hemoglobin 33 pg High 27-31 1 Mean Corpuscular HGB Conc 33 g/dL 31-36 1 Red Cell Distribution Width 16 % High 10.5-15 1 Platelet Count 180 10^3/uL 150-450 1 Mean Platelet Volume 9 um3 7.4-10.4 1 Urinalysis Profile 12/02/2016 Urine Color Yellow 1 Urine Appearance Clear 1 Urine Specific [place] 1.023 1.010-1.030 1 Urine pH 5.0 5-9 1 Urine Urobilinogen Negative Negative 1 Urine Ketones Trace Negative 1 Urine Protein Negative Negative 1 Urine Leukocytes Negative Negative 1 Urine Blood Negative Negative 1 Urine Nitrite Negative Negative 1 Urine Bilirubin Negative Negative 1 Urine Glucose Negative Negative 1 Inr/Protime 12/02/2016 Inr 1.59 High 0.89-1.11 1 Laboratory test finding 12/02/2016 Partial Thrombo 36.7 seconds High 26.0- 36.3 1, 2 Time PTT Comp Metabolic Panel 12/02/2016 Sodium 142 mmol/L 133-145 1 Potassium 4.2 mmol/L 3.5-5.0 1 Chloride 109 mmol/L 101-111 1 Co2 Carbon Dioxide 28 mmol/L 22-32 1 Anion Gap 5 mmol/L 2-11 1 Glucose 95 mg/dL 70-100 1 Blood Urea Nitrogen 17 mg/dL 6-24 1 Creatinine 0.73 mg/dL 0.67-1.17 1 BUN/Creatinine Ratio 23.3 High 8-20 1 Calcium 8.9 mg/dL 8.6-10.3 1 Total Protein 6.2 g/dL Low 6.4-8.9 1 Albumin 4.2 g/dL 3.2-5.2 1 Globulin 2.0 g/dL 2-4 1 Albumin/Globulin Ratio 2.1 1-3 1 Total Bilirubin 0.70 mg/dL 0.2-1.0 1 Alkaline Phosphatase 29 U/L Low 34-104 1 Alt 23 U/L 7-52 1 Ast 13 U/L 13-39 1 Egfr Non- 103.9 >60 1 Egfr 133.6 >60 1, 3 Type & Screen 12/02/2016 Patient Blood Type A Negative 1 Antibody Screen NEGATIVE 1 Urine Culture And Sensitivities 12/02/2016 Urine Culture SEE RESULT BELOW 1, 4 1 AA 12/10 2 AA 12/10 3 Because ethnic data is not always readily available, this report includes an eGFR for both -Americans and non- Americans. The National Kidney Disease Education Program (NKDEP) does not endorse the use of the MDRD equation for patients that are not between the ages of 18 and 70, are , have extremes of body size, muscle mass, or nutritional status, or are non- or non-. According to the National Kidney Foundation, irrespective of diagnosis, the stage of the disease is based on the level of kidney function: Stage Description GFR(mL/min/1.73 m(2)) 1 Kidney damage with normal or decreased GFR 90 2 Kidney damage with mild decrease in GFR 60-89 3 Moderate decrease in GFR 30-59 4 Severe decrease in GFR 15-29 5 Kidney failure <15 (or dialysis) 4 SEE RESULT BELOW Name: KEMAR ALFRED : [address]: Stephy Lyon MD Acct: [id number] Unit: [id number] AGE: 76 Location: [facility] Re12/02/16 SEX: M Status: REG REF SPEC: [id number] [place]: 12/02/16 [facility] DR: Stephy Lyon MD REQ: [id number] RECD: 12/02/16 STATUS: HENOK HEBERT DR: Kj Frey MD _ SOURCE: URINE SPDESC: ORDERED: Urine Culture COMMENTS: WILFREDO 12/10 QUERIES: Urine Source: Clean Catch Procedure Result Reported Site Urine Culture Final 12/03/16- 1239 ML No Growth (<1,000 CFU/mL) * ML - MAIN LAB (PSC1) . END OF REPORT * ML=Testing performed at Main Lab DEPARTMENT OF PATHOLOGY, [address] [place] [address] John Jeffers M.D. Director [facility] # [id number] Procedures Date CPT Code Description Status 12/10/2016 21509 THR Total Hip Replacement Completed 12/10/2016 03327 THR Total Hip Replacement Completed 10/28/2016 86304 Stress Test Completed 10/28/2016 02177 Myocardial Perfusion Imaging Tomographic (Spect) Completed Multiple Studies 10/13/2016 93402 EKG Tracing & Interpretation Completed 07/29/201648241 Inject/Drain Joint/Bursa Major Completed 06/23/2016 59628 ECHO Transthorasic Realtime 2D W Doppler & Color Completed Flow Hosp 01/07/2015 84329 Repair Hernia Umbilical > 5 Yrs, Reducible Completed 01/07/2015 49605 Repair Hernia Inguinal > 5Yrs, Reducible Completed 04/26/2012 61085 Inject Tendon Sheath Or Ligament Aponeurosis Eg Plantar Completed Fascia 05/27/2010 Inject/Drain Joint/Bursa Major Completed 05/19/2010 Inject/Drain Joint/Bursa Major Completed 05/09/2010 Inject/Drain Joint/Bursa Major Completed Encounters Type Date Location Provider CPT E/M Dx Office Visit 12/11/2016 Mirella Erickson,JENNIFER Shultz 38551 N40.0 12:43p Hospitalists I48.91 I10 Z96.641 Office Visit 12/10/2016 12:40p shey Salcedo, 41676 N40.0 Hospitalists N.P. I48.91 I10 Z96.641 Office Visit 10/13/2016 10:40a Section [facility]iology Of Keshawn ArceoEleanor Kirkpatrick, 93254 Z01.810 [facility] DO [facility] I48.91 Z72.0 I10 E78.5 R94.31 M16.11 Office Visit 07/29/2016 10:30a [facility] Stephy Lyon M.D. 38123 M25.561 Juan.John M25.461 M17.11 M25.551 M16.11 Office Visit 06/23/2016 1:14p [facility], [place] [address] R55 Hospitalists I48.91 I10 E78.5 Office Visit 06/22/2016 1:13p [facility], Kaushik Bradshaw M.D. 38663 R55 Hospitalists I48.91 I10 E78.5 Office Visit 03/18/2016 10:30a [facility] Tana Acosta 62976 M67.442 Of Shanell Medina Office Visit 03/13/2016 10:45a [facility] Services Stephy Lyon M.D. 16688 M16.11 Of Shanell M17.11 M25.561 M25.551 Office Visit 04/26/2012 3:30p [facility] Tana Acosta 72186 727.03 Of Shanell Medina Office Visit 07/08/2010 9:45a [facility] Services Kole Noble M.D. 86414 715.96 Of Shanell 715.16 Office Visit 05/01/2010 2:00p [facility] Of Kole Noble 08101 715.96 Shanell Medina Plan of Care 03/29/2017 - Stephy Lyon M.D.Z96.641 Presence of right artificial hip jointFollow up:Follow up: As sqiqutT16.xxxA Unspecified fall, initial klskdhlshN03.651 Pain in right thigh
[2017-04-10] MEDS ORDERED: Oxymetazoline 0.05% NASAL SPR* 15 ML BTL LEFT NARE ONE (19:07)
--- NOTE | 2017-04-10 19:59 | ED ---
Throat Pain/Nasal Congestion - HPI Summary HPI Summary: 76 male presents with epistaxis from left nostril for the past couple hours. He has not placing pressure on the area. He has history of nosebleeds but he has not been nosebleeds since was placed on eliquis. He was placed on eliquis for his A. fib. He denies any dripping down the back of his throat. He states some blood came out of his right nostril. He has had pressure on the area for an hour since arriving. There is minimal bleeding at this time. - History of Current Complaint Chief Complaint: EDEpistaxis Time Seen by Provider: 04/10/17 19:07 - Allergies/Home Medications Allergies/Adverse Reactions: Allergies Allergy/AdvReac Type Severity Reaction Status Date / Time No Known Allergies Allergy Verified 12/10/16 06:53 PMH/Surg Hx/FS Hx/Imm Hx Endocrine/Hematology History: Denies: Hx Diabetes, Hx Thyroid Disease Cardiovascular History: Reports: Hx Hypertension Respiratory History: Denies: Hx Asthma, Hx Chronic Obstructive Pulmonary Disease (COPD) GI History: Denies: Hx Ulcer History: Reports: Hx Kidney Stones - NONE SINCE 2010, ON AVODART, ON ALLOPURINOL FOR-URIC ACID STONES Comment Only: Other Problems/Disorders - PT STATES DR PIEDRA WILL BE BOW STAPLER, AVAILABLE IF ANY PROBLEMS WITH PROSTATE Musculoskeletal History: Reports: 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 2010 & 2011 CARPAL TUNNEL- RIGHT WRIST & LEFT [facility]. 2009 LEFT KNEE REPLACED- [facility] Hx Anesthesia Reactions: No - PT REQUEST NO GENERAL ANESTHSIA, DR PIEDRA AVAILABLE IF NEEDED Infectious Disease History: No Infectious Disease History: Denies: Hx Hepatitis, Hx Human Immunodeficiency Virus (HIV), History Other Infectious Disease, Traveled Outside the [place] in Last 30 Days - Family History Family History: No FHx of malignant hyperthermia. No FHx of anesthesia reaction - Social History Alcohol Use: Daily Alcohol Amount: 2 GLASSES/NIGHT Substance Use Type: Reports: None Smoking Status (MU): Former Smoker Type: Cigars Amount Used/How Often: 2 weekly small cigars MAX Have You Smoked in the Last Year: Yes Review of Systems Negative: Fever Positive: Epistaxis Negative: Chest Pain Negative: Shortness Of Breath All Other Systems Reviewed And Are Negative: Yes Physical Exam Triage Information Reviewed: Yes Vital Signs On Initial Exam: Initial Vitals Temp Pulse Resp BP Pulse Ox 97.6 F 78 20 154/91 97 04/10/17 17:48 04/10/17 17:48 04/10/17 17:48 04/10/17 17:48 04/10/17 17:48 Vital Signs Reviewed: Yes Appearance: Positive: Well-Appearing Skin: Positive: Warm, Dry Head/Face: Positive: Normal Head/Face Inspection Eyes: Positive: Normal, EOMI, JACKIE, Conjunctiva Clear ENT: Positive: Pharynx normal, TMs normal, Other - old blood seen in left nostril. no source of bleeding seen, irritated mucosa seen Respiratory/Lung Sounds: Positive: Clear to Auscultation, Breath Sounds Present Cardiovascular: Positive: Normal, RRR Musculoskeletal: Positive: Normal Neurological: Positive: Normal Psychiatric: Positive: Normal Diagnostics - Vital Signs Vital Signs Temp Pulse Resp BP Pulse Ox 04/10/17 17:48 97.6 F 78 20 154/91 97 - Laboratory Lab Statement: Any lab studies that have been ordered have been reviewed, and results considered in the medical decision making process. Re-Evaluation - Re-Evaluation First Eval Re-Evaluation Time: 08:00 Change: Improved Comment: no bleeding Second Eval Re-Evaluation Time: 08:30 Comment: scant bleeding, pressure applied again and stopped, patient declined rhino rocket, will discharge and recent if bleeding persists EENT Course/Dx - Course Course Of Treatment: 76 male presents with epistaxis from left nostril for the past couple hours. He has not placing pressure on the area. He has history of nosebleeds but he has not been nosebleeds since was placed on eliquis. He was placed on eliquis for his A. fib. He denies any dripping down the back of his throat. He states some blood came out of his right nostril. He has had pressure on the area for an hour since arriving. There is minimal bleeding at this time. On exam old that is seen in left nostril no source of bleeding visualized. Gave dose of Afrin and no bleeding for half an hour. As patient was going to leave noticed some scant amount of bleeding. Had pressure placed again for 10 minutes and when returned to patient no active bleeding seen wanted to place a Rhino Rocket the patient refused. Will go home and if bleeding returns while place pressure on the area. If bleeding continues will return to ED and may need a Rhino Rocket at that point. Patient understands and agrees with plan. - Differential Diagnoses Differential Diagnoses: Epistaxis - Diagnoses Provider Diagnoses: Epistaxis Discharge - Discharge Plan Condition: Good Disposition: HOME Patient Education Materials: Nosebleed (ED) Referrals: Kj Rodriguez MD [Primary Care Provider] - West Hopkins MD [Medical Doctor] - Additional Instructions: Place ice on area if bleeding returns Place pressure on area if bleeding returns, if continues after hour return to ED place saline in nose starting tomorrow daily Return to ED if develop any new or worsening symptoms
[2017-04-10 20:22] VITALS: BP 141/96
== END 2017-04-10 20:48 | disposition home or self-care (01) ==
LOC: ED 17:45
DX: R04.0 Epistaxis (principal); Z79.01 Long term (current) use of anticoagulants; Z86.79 Personal history of other diseases of the circulatory system; Z87.891 Personal history of nicotine dependence; Z87.442 Personal history of urinary calculi
CPT/HCPCS: 99282; A9270-GY

== ENCOUNTER 2021-11-12 20:31 | Observation (INO) ==
[2021-11-12] MEDS ORDERED: NS 0.9% 1000 ml BAG 1,000 ML IV ONE (21:05)
[2021-11-12 21:20] LABS: ABS Lymphocytes 0.6 10^3/ul (1.0-4.8); ABS Monocytes 1.1 10^3/ul (0-0.8); Eosinophil % 0.3 %; Hematocrit 35 % (42-52); Hemoglobin 11.5 g/dL (14.0-18.0); Lymphocyte % 7.2 %; Mean Corpuscular HGB Conc 33 g/dL (31-36); Mean Corpuscular Hemoglobin 34 pg (27-31); Mean Corpuscular Volume 104 fL (80-94); Mean Platelet Volume 8.4 fL (7.4-10.4); Platelet Count 139 10^3/uL (150-450); Red Blood Count 3.37 10^6 /uL (4.18-5.48); Red Cell Distribution Width 16 % (10-15); White Blood Count 8.8 10^3/uL (3.5-10.8)
[2021-11-12 21:44] LABS: Albumin/Globulin Ratio 1.9 (1-3); C Reactive Protein 76.95 mg/L (<8.01); Calcium 8.8 mg/dL (8.6-10.3); Globulin 2.1 g/dL (2-4); Potassium 4.2 mmol/L (3.5-5.0); Total Bilirubin 1.5 mg/dL (0.2-1.0); Total Protein 6.1 g/dL (6.4-8.9); eGFR CKD-EPI 94.1 (>60)
[2021-11-12 22:47] LABS: Urine Appearance Cloudy; Urine Bilirubin Negative (Negative); Urine Blood Negative (Negative); Urine Color Yellow; Urine Glucose Negative (Negative); Urine Ketones Negative (Negative); Urine Nitrite Negative (Negative); Urine Protein Negative (Negative); Urine Specific Gravity 1.023 (1.002-1.030); Urine Urobilinogen Negative (Negative)
[2021-11-13] MEDS ORDERED: fentaNYL 100 mcg/2 ml 50 MCG/ML VIAL IV ONE (00:37)
[2021-11-13] MEDS ORDERED: Magnesium Hydroxide LIQ 30 ML UDC PO PRN (02:00)
[2021-11-13 04:14] LABS: INR 1.56 (0.89-1.11)
[2021-11-13 05:13] LABS: Hematocrit 35 % (42-52); Hemoglobin 11.5 g/dL (14.0-18.0)
[2021-11-13] MEDS ORDERED: Ketorolac 10 mg TAB (NF) PO PRN (14:35)
[2021-11-13] MEDS: Ketorolac 10 mg TAB (NF) PO PRN (16:14)
[2021-11-14 04:50] LABS: ABS Eosinophils 0.1 10^3/ul (0-0.6); ABS Lymphocytes 1.1 10^3/ul (1.0-4.8); ABS Monocytes 1.2 10^3/ul (0-0.8); Hematocrit 33 % (42-52); Hemoglobin 10.8 g/dL (14.0-18.0); Lymphocyte % 12.7 %; Mean Corpuscular HGB Conc 33 g/dL (31-36); Mean Corpuscular Hemoglobin 34 pg (27-31); Mean Corpuscular Volume 103 fL (80-94); Mean Platelet Volume 8.1 fL (7.4-10.4); Platelet Count 129 10^3/uL (150-450); Red Blood Count 3.19 10^6 /uL (4.18-5.48); Red Cell Distribution Width 16 % (10-15); White Blood Count 8.3 10^3/uL (3.5-10.8)
[2021-11-14 05:13] LABS: Calcium 8.7 mg/dL (8.6-10.3); Potassium 4.3 mmol/L (3.5-5.0); eGFR CKD-EPI 91.6 (>60)
[2021-11-14] MEDS: Ketorolac 10 mg TAB (NF) PO PRN ×2 (08:31→14:31)
[2021-11-14 15:11] VITALS: BP 125/81
== END 2021-11-14 16:13 | disposition home or self-care (01) ==
LOC: EDHOLD 20:31 → ED 20:31 → SUATTDRO 11-13 02:01 → MEDTELE 11-13 04:37
PROVIDERS: ADMIT Internal Medicine; ATTEND Internal Medicine